=== PATIENT | female | born 1950 ===

== ENCOUNTER → 2018-01-24 | Outpatient (RCR) | payer MEDICARE | LOC: PT 01-23 09:09 | PROVIDERS: ATTEND Neurological Surgery | DX: M51.16 Intervertebral disc disorders with radiculopathy, lumbar region (principal) | CPT/HCPCS: 97110 ×2; 97162; G8981; G8982 ==

== ENCOUNTER 2018-02-18 09:00 | Outpatient (RCR) | payer MEDICARE | END 2018-02-23 | LOC: PT 09:00 | PROVIDERS: ATTEND Neurological Surgery | DX: M51.16 Intervertebral disc disorders with radiculopathy, lumbar region (principal); M62.81 Muscle weakness (generalized) | CPT/HCPCS: 97110 ×5; G8982; G8983 ==